=== PATIENT | female | born 1955 | race Hispanic/Latino ===

== ENCOUNTER → 2017-06-14 | Outpatient (CLI) | payer OTHER | END | disposition home or self-care (01) | LOC: RAH 16:11 | PROVIDERS: ATTEND Family Medicine | DX: Z13.6 Encounter for screening for cardiovascular disorders (principal) | CPT/HCPCS: 75571 ==

== ENCOUNTER → 2019-12-13 | Outpatient (CLI) | payer OTHER | END | disposition home or self-care (01) | LOC: OIH 15:51 | PROVIDERS: ATTEND Internal Medicine | DX: Z13.6 Encounter for screening for cardiovascular disorders (principal) | CPT/HCPCS: 75571 ==

== ENCOUNTER 2020-11-15 08:26 | Emergency (ER) | payer BC, MEDICARE ==
[~2020-11-15] VITALS: Ht 152.4 cm; Wt 73.5 kg
[2020-11-15] MEDS ORDERED: KETOROLAC 30MG VIAL (30MG/ML) IV SCH (09:00)
[2020-11-15 09:28] VITALS: BP 130/55
[2020-11-15 09:37] LABS: INR 0.97 (0.85-1.15); PROTHROMBIN TIME 10.6 SEC (9.6-11.6)
[2020-11-15 09:50] LABS: CREATININE 0.7 mg/dL (0.5-1.5)
[2020-11-15 09:54] LABS: ALBUMIN 3.6 g/dL (3.5-5.0); BILIRUBIN,TOTAL 0.5 mg/dL (0.2-1.0); TOTAL PROTEIN, SERUM 8.3 g/dL (6.0-8.3)
[2020-11-15 10:19] LABS: APPEARANCE,URINE Clear (CLEAR); BILIRUBIN,URINE Negative (NEGATIVE); COLOR,URINE Yellow (YELLOW); GLUCOSE, URINE (UA) >=1000 mg/dL (NEGATIVE); KETONES,URINE >=80 mg/dL (NEGATIVE); LEUKOCYTE ESTERASE ,URINE Negative (NEGATIVE); NITRATE,URINE Negative (NEGATIVE); OCCULT BLOOD,URINE Negative (NEGATIVE); PROTEIN,URINE Negative (NEGATIVE); UROBILINOGEN,URINE 0.2 mg/dL (0.2-1.0)
[2020-11-15 10:46] LABS: BASOPHILS % (AUTO) 0.3 % (0.0-5.0); HEMATOCRIT 42.1 % (36-48); LYMPHOCYTES % (AUTO) 11.5 % (21.0-51.0); MEAN CORPUSCULAR HEMOGLOBIN 27.8 pg (27.0-33.0); MEAN CORPUSCULAR HGB CONC 32.8 g/dL (32.0-36.0); MEAN CORPUSCULAR VOLUME 84.7 fL (79-99); MONOCYTES % (AUTO) 7.5 % (3.0-13.0); NEUTROPHILS % (AUTO) 78.5 % (40.0-77.0); PLATELET COUNT (AUTO) 273 K/uL (130-400); RED BLOOD CELL COUNT(AUTO) 4.97 MIL/uL (4.00-5.50); RED CELL DISTRIBUTION WIDTH 13.3 % (11.0-15.5); WHITE BLOOD COUNT (AUTO) 8.6 K/uL (4.8-10.8)
[2020-11-15 10:51] LABS: BACTERIA,URINE Few /HPF (None Seen); RBC,URINE None Seen /HPF (0-1); SQUAMOUS EPITHELIAL CELL,UR 0-2 /HPF (0-2); WBC,URINE None Seen /HPF (0-1); YEAST,URINE BUDDING Few /HPF (None Seen)
[2020-11-15 11:02] LABS: PARTIAL THROMBOPLASTIN TIME 27.6 SEC (26.3-35.5)
[2020-11-15 11:08] LABS: B-TYPE NATRIURETIC PEPTIDE 10 pg/mL (0-100)
[2020-11-15] MEDS ORDERED: AMOX-429 PO (11:12)
[2020-11-15] MEDS ORDERED: AZIT500T PO (11:12)
[2020-11-15] MEDS ORDERED: NAPR-1180 PO (11:12)
[2020-11-15] MEDS ORDERED: 0.9%NACL 50ML 50 ML IV ONE (11:27)
[2020-11-15] MEDS ORDERED: HYDROCODONE/ACETAMINOPHEN 5/325 MG TAB PO SCH (11:30)
[2020-11-15] MEDS ORDERED: CEFTRIAXONE 1G VIAL IVP SCH (11:30)
[2020-11-15 12:30] VITALS: BP 126/78
== END 2020-11-15 12:33 | disposition home or self-care (01) ==
LOC: EDH 08:26
DX: J18.9 Pneumonia, unspecified organism (principal); M54.9 Dorsalgia, unspecified; E11.9 Type 2 diabetes mellitus without complications
CPT/HCPCS: 36415; 71045 ×2; 80053; 81001; 82550; 83880; 84484; 85025; 85610; 85730; 93005; 96374; 96375; 99285; J0696; J1885

== ENCOUNTER → 2023-09-21 | Outpatient (CLI) | payer OTHER ==
[~2023-09-21] MED LIST: AMOX-429 PO; AZIT500T PO; NAPR-1180 PO
== END | disposition home or self-care (01) ==
LOC: RAH 14:21
PROVIDERS: ATTEND Internal Medicine
DX: Z13.6 Encounter for screening for cardiovascular disorders (principal)
CPT/HCPCS: 75571